=== PATIENT | male | born 1985 | race Caucasian/White ===

== ENCOUNTER 2024-02-05 19:25 | Emergency (ER) | payer SELFPAY ==
[2024-02-05] MEDS: Lidocaine 1% 10 ML MDV INJECT ONE (19:50)
== END 2024-02-05 20:43 | disposition home or self-care (01) ==
LOC: JD.ED 19:25
DX: S61.012A Laceration without foreign body of left thumb without damage to nail, initial encounter (principal); W26.8XXA Contact with other sharp object(s), not elsewhere classified, initial encounter
CPT/HCPCS: 12002; 99282; J3490